=== PATIENT | female | born 1995 ===

== ENCOUNTER 2017-01-10 01:10 | Inpatient (IN) | payer OTHER ==
[~2017-01-10] VITALS: Ht 160 cm; Wt 107.0 kg
[2017-01-10] MEDS ORDERED: ORTHO TRI-CYCL1 EAC1 PO (08:58)
[2017-01-10] MEDS ORDERED: VITAMIN B-121000 MC3 (08:59)
[2017-01-10] MEDS ORDERED: FERROUS SULFAT325 M3 (09:00)
--- NOTE | 2017-01-10 10:40 | Admission Core Measures ---
Admission Lab Results I reviewed the following labs: Laboratory Tests 01/10 819 Urines Urine Test NEGATIVE Admission Meds I reviewed the following Meds: Current Medications Sig/Alton Start time Last Medication Dose Stop Time Status Admin Cefazolin Sodium 2,000 MG ONCE 01/10 NR (Kefzol-Ancef Inj) 01/10 2359 Dexamethasone 10 MG ONCE 01/10 NR (Decadron 10MG/Ml 01/10 2359 Sdv) Heparin Sodium 5,000 UNIT ONCE 01/10 NR (Porcine) 01/10 2359 Acute Coronary Syndrome Inclusion Criteria ACS Diagnosis No Inpatient Core Measures LDL Reminder: If No, please order W/I first 24hr of stay Congestive Heart Failure Inclusion Criteria CHF Diagnosis No Cerebrovascular accident Inclusion Criteria CVA/TIA Diagnosis No Inpatient Core Measures Bedside Swallow Eval Reminder: If BSE failed, place ST order Antithrombotic Reminder: Order Antithrombotic Medication by end of day 2 Antithrombotic Reminder: Document Reason Antithrombotic Not ordered by end of day 2 AFIB/Flutter Reminder: If Present, add to problem list AFIB/Flutter Reminder: Order Anticoag Medication for pts with AFIB/Flutter Atherosclerosis Reminder: If Present, add to problem list LDL Reminder: If No, please order W/I first 24hr of stay PT Order Reminder: If No, please order Venous thromboembolism Inpatient Core Measures VTE Risk Factors: Obesity, Surgery No Mech VTE prophylaxis d/t No contraindications No VTE Pharm Prophylaxis d/t No contraindications Inclusion Criteria - Per Current guidelines, there needs to be overlap - treatment for the first 5 days of Warfarin therapy. - Parenteral Anticoagulation (IV or SC) needs to be - given along with Warfarin therapy. VTE Diagnosis No VTE Type NONE VTE Confirmed by (Test) NONE Problem List As ranked by this Provider includes Assessment & Plan 1. S/P laparoscopic sleeve gastrectomy HOME MEDS Home Med List Cyanocobalamin (Vitamin B-12) (Unknown Strength) TABLET (Unknown Dose) DAILY VITAMIN (Reported) Norgestimate-Ethinyl Estradiol (Ortho Tri-Cyclen Lo Tablet) (Unknown Strength) TABLET (Unknown Dose) PO DAILY CONTROL (Reported)
--- NOTE | 2017-01-10 10:51 | Surg Short-stay <48hrs Dis Sum ---
Visit Information Visit Dates Admission Date: 01/10/17 Discharge Date: 01/13/17 Surgical Short Stay DC Summary Admission Diagnosis: Morbid obesity Final Diagnosis: Same Procedure(s): Laparoscopic sleeve gastrectomy Summary/Significant Findings: The patient was admitted on 01/10/2017. She was brought to the operating theater where she underwent a laparoscopic sleeve gastrectomy. Postoperatively the patient progressed as expected, her upper GI study did not show leak or obstruction. Although she has been nauseous, it was improving through her stay. She was tolerating a stage 1 diet with some intermittent nausea on the day of discharge. The patient's pain was adequately managed. The patient's laboratory studies/ vital signs remained stable and she was discharged with an uneventful hospital course. No lovenox was indicated according to the pre-op risk assessment. Condition at Discharge: Stable Discharge Disposition: home or self care Discharge instructions provided to patient/family: Yes Post discharge follow-up plan: Call the office to be seen in one week
[2017-01-10] MEDS ORDERED: HYCET 7.5 MG-3473 ML PO ×2 (10:56→11:05)
[2017-01-10] MEDS ORDERED: PROTONIX40 M3 PO ×2 (10:56→11:05)
--- NOTE | 2017-01-10 11:01 | Patient Discharge Instructions ---
Discharge Instructions General Discharge Information You were seen/treated for: Morbid obesity You had these procedures: Laparoscopic sleeve gastrectomy Watch for these problems: Significantly increased pain, nausea, or temperatures over 101 Increased redness or drainage from incisions Chest pain or difficulty breathing No bath, but you may shower: Yes Other wound care: Shower normally and pat dry Special Instructions: See preprinted information packet Ambulate frequently May use Gas-X for gas pain Diet Recommended Diet: Bariatric Activity Activity Self Limited: Yes Pounds, do NOT lift more than: 10 Other activity limits: Do not drive while taking pain medications Acute Coronary Syndrome Inclusion Criteria At DC or during hospital stay patient has or had the following: ACS DIAGNOSIS No Discharge Core Measures Meds if any: Prescribed or Continued at Discharge Meds if any: NOT Prescribed or Continued at Discharge Congestive Heart Failure Inclusion Criteria At DC or during hospital stay patient has or had the following: CHF DIAGNOSIS No Discharge Core Measures Meds if any: Prescribed or Continued at Discharge Meds if any: NOT Prescribed or Continued at Discharge Cerebrovascular accident Inclusion Criteria At DC or during hospital stay patient has or had the following: CVA/TIA Diagnosis No Discharge Core Measures Meds if any: Prescribed or Continued at Discharge Meds if any: NOT Prescribed or Continued at Discharge Venous thromboembolism Inclusion Criteria VTE Diagnosis No VTE Type NONE VTE Confirmed by (Test) NONE Discharge Core Measures - Per Current guidelines, there needs to be overlap - treatment for the first 5 days of Warfarin therapy. - If discharged on Warfarin prior to 5 days of - overlap therapy, the patient will need to be - assessed for post discharge needs including - *Post discharge parental anticoagulation - *Warfarin and/or parental anticoagulation education - *Follow up date to check INR post discharge At least 5 days overlap therapy as Inpatient No Meds if any: Prescribed or Continued at Discharge Note: Overlap Therapy is Warfarin and Anticoagulant Meds if any: NOT Prescribed or Continued at Discharge
--- NOTE | 2017-01-10 11:44 | Operative Report ---
Operative/Inv Procedure Report Surgery Date: 01/10/17 Name of Procedure: Laparoscopic Sleeve gastrectomy Pre-Operative Diagnosis: Morbid obesity Post-Operative Diagnosis: same Estimated Blood Loss: less than 20cc Surgeon/Transit Worker: SEAN CUEVA,MONICA Guerrero PA-C Anesthesia: general endotracheal tube, block IV Fluids: LR Implants: none Urine Output: na Drains: none Specimens: portion of stomach Complications: none Condition: stable Operative Indication: see admission h and p Operative/Procedure Note Note: After informed consent and proper identification the patient was taken to the operating room and placed on the operating room table in the supine position and sequential compression stockings were applied she underwent a general endotracheal anesthetic anesthesia performed a OZZY block Next the abdomen was prepped and draped in normal sterile fashion using a completely and 12 mm Optiview trocar and a 0 Stortz 10 mm laparoscope we entered the abdominal cavity without difficulty through 1 cm incision in the left upper quadrant with excellent visualization as we insufflated with 14 mm of CO2 pressure next under direct visualization we placed 2 additional 5 mm trochars in each of the subcostal margins a 15 mm trocar in the right mid abdomen and a Kiara liver retractor in the upper midline to retract the left lobe of the liver we had anesthesia inserted an orogastric tube to decompress the stomach the anatomy look fine we again dissection using the Harmonic scalpel opposite the angularis 6 cm from the pylorus and took down the vascular attachments all the way up to the angle of Hiss taking both the short gastric vessels and the attachments off the gastroepiploic's. We cleaned off the left ledy. There was no evidence of a hiatal hernia. We then had anesthesia remove the orogastric tube in place a 40 Georgian bougie using the bougie as a guide we began to staple using an Endo REED stapler with 2 black loads followed by 2 purple load 60 cm cartridges with seam guard. This completely transected the remnant stomach from the newly created sleeve we had anesthesia remove the bougie we removed a Kiara liver retractor and we removed the portion of stomach in a 15 Endo Catch bag through the right mid abdomen trocar site removed all trochars under direct visualization we closed the skin incisions with 4-0 Vicryl subcuticular stitches. Skin glue was used to close the skin incisions the patient tolerated the procedure without complications was extubated and taken the recovery room in stable condition Findings: normal liver, no hiatal hernia Discharge Disposition: PACU
--- NOTE | 2017-01-10 13:57 | PN- Bariatrics ---
Subjective Subjective: The patient was seen this afternoon postoperatively. She reports that her pain is under adequate control but complains of intermittent nausea. She had no other complaints and denied any chest pain or difficulty breathing. Objective Vital Signs and I&Os Vital signs: Blood pressure 115/60, pulse 80, temperature 97.5, O2 sats are 90% on 3 L via nasal cannula I's and O's: 700 ML's in of lactated Ringer's/patient's is due to void/EBL minimal Physical Exam: Gen.: Alert and in no obvious distress Skin: Warm and dry Cardiac: S1 and S2 regular Pulmonary: Bilateral breath sounds are equal and decreased at bases Abdomen: Soft, obese, appropriate incisional tenderness, bowel sounds sluggish. Port sites are clean, dry, and intact. Extremities: Bilateral lower extremities are warm without calf tenderness or significant edema. Assessment/Plan Assessment/Plan Assessment: 21-year-old female status post laparoscopic sleeve gastrectomy. Postoperatively the patient is progressing as expected and her pain is under adequate control. Plan: Stage I diet until midnight then nothing by mouth for an upper GI in the morning IV hydration PRN pain medications and antiemetics 2 doses of postoperative prophylactic antibiotics Out of bed and ambulate Incentive spirometry Resume home medications GI and DVT prophylaxis Follow-up morning laboratory studies Core Measures/Miscellaneous Venous Thromboembolism VTE Risk Factors: Obesity, Surgery VTE Contraindications: No Contraindications VTE Diagnosis: No VTE Type: NONE VTE Confirmed by (Test): NONE Beta Arturo Is Beta Arturo a Home Med? No Antibiotics Is Patient on Antibiotics? Yes If Yes: prophylaxis
[2017-01-10 14:45] VITALS: BP 120/72
--- NOTE | 2017-01-10 18:26 | NUR ---
PT ARRIVED TO FLOOR AT 1445. VSS. PT NAUSEAOUS AND DROWSY BUT AROUSABLE. ZOFRAN GIVEN FOR NAUSEA. PT ABLE TO AMBULATE TO BATHROOM TO VOID. SURGICAL SITES C/D/I. AT 1800 PT VOMITED AFTER DRINKING PROTEIN DRINK. SURGICAL PA ROBYN NOTIFIED. SURGICAL PA ORDERED DECADRON FOR NAUSEA. MOTHER AT BEDSIDE WHO IS VERY INVOLVED IN PATIENT CARE. FLUIDS RUNNING. VSS.
[2017-01-10 22:24] VITALS: BP 104/72
[2017-01-11 06:24] VITALS: BP 110/64
--- NOTE | 2017-01-11 07:31 | PN- Bariatrics ---
See Addendum Subjective Subjective: Reports ongoing nausea and spitting up some blood tinged sputum. Given 2 doses of decadron earlier. Ambulated yesterday. No shortness of breath. No chest pains. Out of bed to bathroom. No flatus or bm yet. Objective Vital Signs and I&Os Vital Signs Date Time Temp Pulse Resp B/P B/P Pulse O2 O2 Flow FiO2 Mean Ox Delivery Rate 01/12 624 98.2 62 20 110/64 96 Room Air 01/11 0600 Room Air 01/10 2224 98.1 75 18 104/72 95 Nasal 2.0L Cannula 01/10 1800 96 Nasal 1.5L Cannula 01/10 1638 Nasal 2.0L Cannula 01/10 1452 Nasal 2.0L Cannula 01/10 1452 94 Nasal 2.0L Cannula 01/10 1445 97.7 105 20 120/72 94 Intake & Output 01/11 0800 01/11 0000 01/10 1600 01/10 0800 01/10 0000 01/09 1600 Intake Total 1000 1060 Output Total 700 650 Balance 300 410 Intake, IV 1000 1000 Intake, Oral 60 Output, 100 Emesis Output, Urine 700 550 Patient 236 lb Weight Physical Exam: General - alert & oriented x 3. comfortable. no acute distress. Lungs - clear bilaterally. no w/r/r. Cardiac - s1s2. reg. Abdomen - soft. incisions approximated with skin glue. no hematoma. no drains. Extremities - warm bilaterally. no c/c/e. calves soft and nontender b/l. athrombics in place. Current Medications: Current Medications Sig/Alton Start time Last Medication Dose Route Stop Time Status Admin Acetaminophen 1,000 MG .STK-MED ONE 01/10 09 DC IV 01/10 0908 Acetaminophen/ 15 ML Q6P PRN 01/10 1445 AC Hydrocodone Bitart PO Cefazolin Sodium 1,000 MG IQ8 01/10 1600 DC 01/10 IV 01/11 0001 2323 Cefazolin Sodium 2,000 MG ONCE 01/10 0000 DC IV 01/10 235 Dexamethasone 4 MG Q12H 01/10 1800 DC 01/11 IV 01/11 0601 0552 Dexamethasone 10 MG ONCE 01/10 0000 DC IV 01/10 235 Fentanyl Citrate 250 MCG .STK-MED ONE 01/10 0906 DC IM 01/10 0907 Heparin Sodium 5,000 UNIT Q8 01/10 1400 AC 01/11 (Porcine) SC 0552 Heparin Sodium 0 .STK-MED ONE 01/10 0822 DC (Porcine) .ROUTE Heparin Sodium 5,000 UNIT ONCE 01/10 0000 DC (Porcine) SC 01/10 2359 Hydromorphone HCl 1 MG Q4P PRN 01/10 1445 AC 01/11 IV 0341 Hyoscyamine 0.125 MG Q4 01/10 1400 AC 01/11 SL 0552 Ketorolac 30 MG Q6P PRN 01/10 1045 AC 01/11 Tromethamine IV 0646 Midazolam HCl 4 MG .STK-MED ONE 01/10 0907 DC IM 01/10 0908 Ondansetron HCl 4 MG Q6P PRN 01/10 1445 AC 01/11 IV 0342 Pantoprazole Sodium 40 MG DAILY 01/10 1045 AC 01/10 IV 1701 Potassium Chloride 20 MEQ .Q8H 01/10 1445 AC 01/11 Dextrose/Sodium 1,000 ML IV 0335 Chloride Simethicone 40 MG Q6P PRN 01/10 1445 AC 01/11 PO 0132 Results Last 48 Hours of Labs: Laboratory Tests 01/10 0819 Urines Urine Test NEGATIVE Assessment/Plan Assessment/Plan This 21-year-old female is POD#1 s/p lap sleeve gastrectomy, currently nauseous npo for upper gi study restart stage 1 diet after ugi continue iv fluids until tolerating stage 1 diet continue pain medication as needed zofran / tigan prn nausea oob/ambulation encouraged protonix - gi ppx hep sc - dvt ppx f/u labs will d/w Core Measures/Miscellaneous Venous Thromboembolism VTE Risk Factors: Obesity, Surgery VTE Contraindications: No Contraindications VTE Diagnosis: No VTE Type: NONE VTE Confirmed by (Test): NONE Beta Arturo Is Beta Arturo a Home Med? No Antibiotics Is Patient on Antibiotics? Yes If Yes: prophylaxis
[2017-01-11 08:42] LABS: ABSOLUTE BASOPHIL COUNT 0 /CUMM (0.0-0.2); ABSOLUTE EOSINOPHIL COUNT 0 /CUMM (0.0-0.7); ABSOLUTE GRANULOCYTE CT 9.9 /CUMM (1.4-6.5); ABSOLUTE LYMPH COUNT 0.7 /CUMM (1.2-3.4); ABSOLUTE MONOCYTE COUNT 0.6 /CUMM (0.10-0.60); BASOPHIL % 0 % (0.0-2.0); EOSINOPHIL % 0 % (0-5); HEMATOCRIT 36.2 % (37-47); MEAN CORPUSCULAR HGB 24.4 PG (27.0-31.0); MEAN CORPUSCULAR HGB CONC 32.2 G/DL (33.0-37.0); MEAN CORPUSCULAR VOLUME 75.9 FL (81.0-99.0); MEAN PLATELET VOLUME 8.8 FL (7.4-10.4); PLATELET COUNT 289 /CUMM (130-400); RBC DISTRIBUTION WIDTH 19.2 % (11.5-14.5); RED BLOOD CELL CT 4.76 /CUMM (4.20-5.40); WHITE BLOOD CELL COUNT 11.2 /CUMM (4.8-10.8)
[2017-01-11 09:33] LABS: GRANULOCYTE % 88.1 % (42.2-75.2)
--- NOTE | 2017-01-11 10:11 | RADIOLOGY REPORT ---
EXAMINATION: FLUOROSCOPY UPPER GI WITH GASTROGRAFIN AND KUB CLINICAL INFORMATION: 1 day status post gastric sleeve procedure. Postoperative evaluation. COMPARISON: None. TECHNIQUE: A limited Gastrografin upper GI study was performed using 30 ml of Gastroview with the patient in the semiupright position. Initial KUB was obtained. 4 fluoroscopic spot films and 7 cine fluoroscopy runs were acquired. FINDINGS: The preliminary commissions manager view of the abdomen demonstrates postsurgical pito in the epigastric region. Normal bowel gas pattern is seen without abnormal bowel distention seen. Esophageal distensibility is normal. There is esophageal dysmotility with premature breakup of the primary wave of peristalsis and to and fro motion of the contrast seen. The GE junction is located below the level of the diaphragm. Spontaneous GE reflux up to the upper thoracic esophagus is seen. The remnant stomach is normal with no abnormal distention or contrast leak seen. There is prompt emptying of contrast into the duodenum, which is unremarkable in appearance. FLUOROSCOPY TIME: 55 seconds. IMPRESSION: 1. Mild esophageal dysmotility and prominent gastroesophageal reflux seen. 2. Postoperative appearance of the stomach is unremarkable with no evidence of contrast leak or gastric outlet obstruction seen.
[2017-01-11 14:07] VITALS: BP 118/70
[2017-01-11 22:13] VITALS: BP 118/68
[2017-01-12 06:00] VITALS: BP 116/64
--- NOTE | 2017-01-12 08:15 | PN- Bariatrics ---
Subjective Subjective: Reports improving nausea. She did not like the taste of the isopure yesterday, but is willing to try another flavor this morning. Reports ambulating without difficulty. No dizziness. No shortness of breath. No chest pains. Voiding well. No flatus or bm yet. Objective Vital Signs and I&Os Vital Signs Date Time Temp Pulse Resp B/P B/P Pulse O2 O2 Flow FiO2 Mean Ox Delivery Rate 01/12 600 98.0 78 18 116/64 78 Room Air 01/12 0600 94 Room Air 01/11 2213 98.5 58 20 118/68 97 Room Air 01/11 2200 97 Room Air 01/11 1600 Room Air 01/11 1407 97.5 77 20 118/70 94 01/11 1400 Room Air Intake & Output 01/12 1600 01/12 0800 01/12 0000 01/11 1600 01/11 0800 01/11 0000 Intake Total 1100 109 244 4324 1060 Output Total 750 350 900 700 650 Balance 350 190 70 300 410 Intake, IV 800 025 024 8718 1000 Intake, Oral 300 240 120 60 Number 0 Bowel Movements Output, 100 Emesis Output, Urine 750 350 900 700 550 Physical Exam: General - alert & oriented x 3. comfortable. no acute distress. Lungs - clear bilaterally. no w/r/r. Cardiac - s1s2. reg. Abdomen - soft. incisions well approximated with skin glue. no exudates. no erythema. no drains. Extremities - warm bilaterally. no c/c/e. calves soft and nontender b/l. Current Medications: Current Medications Sig/Alton Start time Last Medication Dose Route Stop Time Status Admin Acetaminophen 1,000 MG Q6H 01/11 0745 DC 01/12 N/A 1 UNIT IV 01/12 0159 0111 Acetaminophen/ 15 ML Q6P PRN 01/10 1445 AC 01/11 Hydrocodone Bitart PO 2147 Bisacodyl 10 MG ONCE ONE 01/[address] 01/12 0816 Heparin Sodium 5,000 UNIT Q8 01/10 1400 AC 01/12 (Porcine) SC 0541 Hydromorphone HCl 1 MG Q4P PRN 01/10 1445 AC 01/11 IV 1639 Hyoscyamine 0.125 MG Q4 01/10 1400 AC 01/12 SL 0541 Ketorolac 30 MG Q6 01/11 1200 AC 01/12 Tromethamine IV 0541 Ondansetron HCl 4 MG Q6P PRN 01/10 1445 AC 01/11 IV 1643 Pantoprazole Sodium 40 MG DAILY 01/10 1045 01/11 IV 0909 Potassium Chloride 20 MEQ .Q10H 01/10 1445 AC 01/12 Dextrose/Sodium 1,000 ML IV 0217 Chloride Simethicone 40 MG Q6P PRN 01/10 1445 AC 01/11 PO 2027 Trimethobenzamide HCl 200 MG 4 TIMES/DAY PRN 01/11 0730 AC IM Results Last 48 Hours of Labs: Laboratory Tests 01/11 01/10 0631 0819 Chemistry Sodium (137 - 145 mmol/L) 139 Potassium (3.5 - 5.1 mmol/L) 4.6 Chloride (98 - 107 mmol/L) 107 Carbon Dioxide (22 - 30 mmol/L) 18 L Anion Gap (5 - 16) 14 BUN (7 - 17 mg/dL) < 2 L Creatinine (0.5 - 1.0 mg/dL) 0.5 Estimated GFR (>60 ml/min) > 60 BUN/Creatinine Ratio (7 - 25 %) 4.0 L Hematology CBC w Diff NO MAN DIFF REQ WBC (4.8 - 10.8 /CUMM) 11.2 H RBC (4.20 - 5.40 /CUMM) 4.76 Hgb (12.0 - 16.0 G/DL) 11.6 L Hct (37 - 47 %) 36.2 L MCV (81.0 - 99.0 FL) 75.9 L MCH (27.0 - 31.0 PG) 24.4 L RDW (11.5 - 14.5 %) 19.2 H Plt Count (130 - 400 /CUMM) 289 MPV (7.4 - 10.4 FL) 8.8 Gran % (42.2 - 75.2 %) 88.1 H Lymphocytes % (20.5 - 51.1 %) 6.3 L Monocytes % (1.7 - 9.3 %) 5.6 Eosinophils % (0 - 5 %) 0 Basophils % (0.0 - 2.0 %) 0 L Absolute Granulocytes (1.4 - 6.5 /CUMM) 9.9 H Absolute Lymphocytes (1.2 - 3.4 /CUMM) 0.7 L Absolute Monocytes (0.10 - 0.60 /CUMM) 0.6 Absolute Eosinophils (0.0 - 0.7 /CUMM) 0 Absolute Basophils (0.0 - 0.2 /CUMM) 0 PUBS MCHC (33.0 - 37.0 G/DL) 32.2 L Urines Urine Test NEGATIVE Assessment/Plan Assessment/Plan This 21-year-old female is POD#2 s/p lap sleeve gastrectomy, with improving nausea stage 1 diet as tolerated. she will be trying another flavor of isopure this morning zofran prn nausea oob/ambulating well pain controlled try dulcolax suppository hep sc dvt ppx protonix - gi ppx d/c home later if tolerating stage 1 and passing some flatus will d/w Core Measures/Miscellaneous Venous Thromboembolism VTE Risk Factors: Obesity, Surgery VTE Contraindications: No Contraindications VTE Diagnosis: No VTE Type: NONE VTE Confirmed by (Test): NONE Beta Arturo Is Beta Arturo a Home Med? No Antibiotics Is Patient on Antibiotics? Yes If Yes: prophylaxis Antibiotics Is Patient on Antibiotics? Yes If Yes: prophylaxis
[2017-01-12 14:00] VITALS: BP 112/66
[2017-01-12 15:04] VITALS: BP 112/66
[2017-01-12 22:38] VITALS: BP 100/54
[2017-01-13 06:00] VITALS: BP 102/54
--- NOTE | 2017-01-13 07:53 | PN- Bariatrics ---
Subjective Subjective: The patient was seen this morning postoperatively day #3. She reports that her pain is under adequate control and is tolerating a stage I diet without nausea. She has no complaints at the current time and is eager to be discharged today. Objective Vital Signs and I&Os Vital Signs Date Time Temp Pulse Resp B/P B/P Pulse O2 O2 Flow FiO2 Mean Ox Delivery Rate 01/13 0600 98.2 60 18 102/54 97 Room Air 01/13 0600 97 Room Air 01/12 2238 98.4 57 20 100/54 96 Room Air 01/12 2200 98 Room Air 01/12 1504 98.3 69 20 112/66 96 Room Air 01/12 1400 98.3 69 20 112/66 96 Room Air 01/12 1400 97 Room Air Intake & Output 01/13 0800 01/13 0000 01/12 1600 01/12 0800 01/12 0000 01/11 1600 Intake Total 613 229 4081 1100 540 970 Output Total 650 500 750 350 900 Balance 696 982 8841 350 190 70 Intake, IV 800 300 700 800 300 850 Intake, Oral 120 300 360 300 240 120 Number 1 1 0 Bowel Movements Output, Urine 650 500 750 350 900 Patient 236 lb Weight Physical Exam: Gen.: Alert and in no obvious distress Skin: Warm and dry Abdomen: Soft, obese, appropriate incisional tenderness, bowel sounds positive. Port sites are clean, dry, and intact without signs of infection. Extremities: Bilateral lower extremities are warm without calf tenderness or significant edema. Assessment/Plan Assessment/Plan Assessment: 21-year-old female status post laparoscopic sleeve gastrectomy postoperative day #3. The patient is progressing as expected and is tolerating a stage I diet without nausea. Her by mouth intake has increased and is currently adequate. Plan: Continue stage I diet Out of bed and ambulate GI and DVT prophylaxis Discharge home Core Measures/Miscellaneous Venous Thromboembolism VTE Risk Factors: Obesity, Surgery VTE Contraindications: No Contraindications VTE Diagnosis: No VTE Type: NONE VTE Confirmed by (Test): NONE Beta Arturo Is Beta Arturo a Home Med? No Antibiotics Is Patient on Antibiotics? No
== END 2017-01-13 10:00 | DRG 403 ==
LOC: 2NB 01:10 → SDA 01:10 → ENRESERV 12:50 → ENTRNSPT 14:16 → 2NB 14:33 → EDTRNSPTSTS 14:34 → CMPTRNSPT 14:45 → 2NB 20:25 → ENPENDDIS 01-13 08:33 → 2NB 01-13 10:00
PROVIDERS: Physician Assistant Surgical; ADMIT Surgery
PROC: 0DB64Z3 Excision of Stomach, Percutaneous Endoscopic Approach, Vertical (ICD-10-PCS; principal; 2017-01-10)
DX: E66.01 Morbid (severe) obesity due to excess calories (principal); Z68.41 Body mass index [BMI] 40.0-44.9, adult; G47.30 Sleep apnea, unspecified; G43.909 Migraine, unspecified, not intractable, without status migrainosus
CPT/HCPCS: 2NBP; 36415; 74240; 81025; 82436; J0131; J0690; J1100; J1170; J1644; J1885; J2405; J3250; J7042; S5012